=== PATIENT | male | born 2000 | race Caucasian/White ===

== ENCOUNTER 2018-01-09 14:50 | Emergency (ER) | payer MEDICAID, OTHER ==
[~2018-01-09] VITALS: Ht 172.7 cm; Wt 62.0 kg
[2018-01-09] MEDS ORDERED: OMEP-110 PO (15:23)
[2018-01-09] MEDS ORDERED: GABA100C PO (15:23)
[2018-01-09 15:38] LABS: BASOPHILS # (AUTO) 0.04 x10^3/uL (0-0.3); BASOPHILS % (AUTO) 1 % (0-1); EOSINOPHILS # (AUTO) 0.11 x10^3/uL (0-0.8); EOSINOPHILS % (AUTO) 2 % (1-7); LYMPHOCYTES # (AUTO) 2.18 x10^3/uL (1-6.1); LYMPHOCYTES % (AUTO) 36 % (22-44); MD NO; MEAN CORPUSCULAR HEMOGLOBIN 30.1 pg (27.5-34.5); MEAN CORPUSCULAR VOLUME 88.6 fL (81-97); MEAN PLATELET VOLUME 8.7 fL (7.4-10.4); MONOCYTES # (AUTO) 0.46 x10^3/uL (0-1.4); MONOCYTES % (AUTO) 8 % (2-9); NEUTROPHILS # (AUTO) 3.33 x10^3/uL (1.8-8.0); NEUTROPHILS % (AUTO) 55 % (42-75); PLATELET COUNT 244 x10^3/uL (130-400); RED BLOOD COUNT 5.56 x10^6/uL (4.38-5.82); RED CELL DISTRIBUTION WIDTH 12.4 % (9.4-14.8)
[2018-01-09 15:49] LABS: ALBUMIN 4.7 g/dL (3.4-5.0); ANION GAP 11 mmol/L (5-15); CALCIUM 9.4 mg/dL (8.5-10.1); CHLORIDE 106 mmol/L (98-107)
[2018-01-09 15:55] LABS: ALANINE AMINOTRANSFERASE 25 U/L (12-78); ALKALINE PHOSPHATASE 88 U/L (45-117); BILIRUBIN,TOTAL 0.8 mg/dL (0.2-1.0); CREATININE 0.72 mg/dL (0.7-1.3); HIGH-SENSITIVITY CRP 0.05 mg/dL (0.02-0.30); TOTAL PROTEIN 8.4 g/dL (6.4-8.2); TROPONIN I < 0.015 ng/mL (0.000-0.045)
[2018-01-09 17:15] VITALS: BP 112/55
== END 2018-01-09 17:19 | disposition home or self-care (01) ==
LOC: ED 15:45
DX: R07.89 Other chest pain (principal)
CPT/HCPCS: 36415; 71046; 80053; 84484; 85025; 86141; 93005; 99285

== ENCOUNTER 2018-08-04 13:45 | Emergency (ER) | payer MEDICAID ==
[~2018-08-04] VITALS: Ht 175.3 cm; Wt 63.5 kg
[~2018-08-04 13:45] MED LIST: GABA100C PO; OMEP-110 PO
[2018-08-04 14:22] VITALS: BP 112/52
[2018-08-04] MEDS ORDERED: KETOROLAC 30 MG/1 ML ONE (14:26)
[2018-08-04] MEDS ORDERED: KETOROLAC 30 MG/1 ML IM ONE (14:30)
--- NOTE | 2018-08-04 14:40 | NUR ---
LAB AND RAD AT BEDSIDE. PT MEDICATED FOR PAIN PER MAR. MOTHER AT BEDSIDE. AWAITING TEST RESULTS AT THIS TIME. CALL LIGHT WITHIN REACH.
[2018-08-04 14:50] LABS: BASOPHILS # (AUTO) 0.03 x10^3/uL (0-0.3); BASOPHILS % (AUTO) 1 % (0-1); EOSINOPHILS # (AUTO) 0.08 x10^3/uL (0-0.8); EOSINOPHILS % (AUTO) 2 % (1-7); LYMPHOCYTES # (AUTO) 1.89 x10^3/uL (1-6.1); LYMPHOCYTES % (AUTO) 36 % (22-44); MD NO; MEAN CORPUSCULAR HEMOGLOBIN 30.6 pg (27.5-34.5); MEAN CORPUSCULAR HGB CONC 34.3 g/dL (33.2-36.2); MEAN CORPUSCULAR VOLUME 89.1 fL (81-97); MEAN PLATELET VOLUME 8.3 fL (7.4-10.4); MONOCYTES # (AUTO) 0.37 x10^3/uL (0-1.4); MONOCYTES % (AUTO) 7 % (2-9); NEUTROPHILS % (AUTO) 55 % (42-75); PLATELET COUNT 226 x10^3/uL (130-400); RED CELL DISTRIBUTION WIDTH 12.2 % (9.4-14.8)
[2018-08-04 15:03] LABS: ALBUMIN 4.5 g/dL (3.4-5.0); ANION GAP 5 mmol/L (5-15); CALCIUM 9.3 mg/dL (8.5-10.1); CHLORIDE 111 mmol/L (98-107); CREATININE 0.65 mg/dL (0.7-1.3)
[2018-08-04 15:07] LABS: TROPONIN I < 0.015 ng/mL (0.000-0.045)
--- NOTE | 2018-08-04 15:24 | NUR ---
ALL RESULTS BACK AT THIS TIME, CHART UP FOR RECHECK
== END 2018-08-04 16:27 | disposition home or self-care (01) ==
LOC: ED 14:26
DX: M94.0 Chondrocostal junction syndrome [Tietze] (principal); R07.89 Other chest pain
CPT/HCPCS: 36415; 71045; 80048; 82040; 84484; 85025; 93005; 96372; 99284; J1885

== ENCOUNTER 2019-02-08 22:20 | Emergency (ER) | payer MEDICAID ==
[~2019-02-08] VITALS: Ht 175.3 cm; Wt 72.7 kg
[~2019-02-08 22:20] MED LIST changes: +BUSP10TA PO
[2019-02-08 22:22] VITALS: BP 125/68
[2019-02-08] MEDS ORDERED: MELOXICAM (22:27)
--- NOTE | 2019-02-08 22:31 | NUR ---
PT AMBULATED STEADILY TO ROOM FROM TRIAGE ROOM W MOTHER AND TRIAGE TECH. NAD NOTED.
--- NOTE | 2019-02-08 22:48 | NUR ---
PT CO CONTINUED CHRONIC SUBSTERNAL CP FOR WHICH HE HAS BEEN RX'D NORCO BY HIS PCP. PT DENIES CHANGE IN LOCATION/DURATION/CHARACTER OF PAIN. NAD NOTED. PWD. ERP AT BEDSIDE FOR INITIAL ASSESSMENT
[2019-02-08] MEDS ORDERED: HYDR-3240 PO (23:01)
--- NOTE | 2019-02-08 23:02 | NUR ---
DC EDUCATION PROVIDED, PT DEMONSTRATES UNDERSTANDING. PT AMBULATED STEADILY TO DC WITH RN AND MOTHER
== END 2019-02-08 23:04 | disposition home or self-care (01) ==
LOC: ED 22:58
DX: R07.89 Other chest pain (principal)
CPT/HCPCS: 93005; 99283